=== PATIENT | male | born 1975 | race Caucasian/White ===

== ENCOUNTER 2020-02-09 12:49 | Outpatient (CLI) | payer OTHER ==
[2020-02-09 14:06] LABS: BASOPHILS # (AUTO) 0.04 x10^3/uL (0-0.1); BASOPHILS % (AUTO) 1 % (0-1); EOSINOPHILS # (AUTO) 0.09 x10^3/uL (0-0.4); EOSINOPHILS % (AUTO) 2 % (1-7); LYMPHOCYTES # (AUTO) 2.47 x10^3/uL (1-3.4); LYMPHOCYTES % (AUTO) 41 % (22-44); MD NO; MEAN CORPUSCULAR HEMOGLOBIN 31.7 pg (27.5-34.5); MEAN CORPUSCULAR HGB CONC 34.2 g/dL (33.2-36.2); MEAN CORPUSCULAR VOLUME 92.8 fL (81-97); MEAN PLATELET VOLUME 8.4 fL (7.4-10.4); MONOCYTES # (AUTO) 0.45 x10^3/uL (0.2-0.8); MONOCYTES % (AUTO) 8 % (2-9); NEUTROPHILS # (AUTO) 2.98 x10^3/uL (1.8-6.8); NEUTROPHILS % (AUTO) 50 % (42-75); PLATELET COUNT 198 x10^3/uL (130-400); RED BLOOD COUNT 4.53 x10^6/uL (4.38-5.82); RED CELL DISTRIBUTION WIDTH 13.8 % (9.4-14.8)
[2020-02-09 14:19] LABS: ANION GAP 7 mmol/L (5-15); CALCIUM 8.8 mg/dL (8.5-10.1); CHLORIDE 108 mmol/L (98-107); CREATININE 1.27 mg/dL (0.7-1.3)
[2020-02-09 14:30] LABS: MICROSCOPIC NOT IND
[2020-02-09 16:19] LABS: INTERNATIONAL NORMALIZED RATIO 1.01 (0.93-1.1); PROTHROMBIN TIME 10.7 Seconds (9.6-11.5)
[2020-02-09] MEDS ORDERED: QUET100T4 PO (16:37)
[2020-02-09] MEDS ORDERED: BUPR150T28 PO (16:37)
[2020-02-09] MEDS ORDERED: GABA300C PO (16:37)
[2020-02-09] MEDS ORDERED: CITA20TA6 PO (16:37)
[2020-02-09] MEDS ORDERED: OMEP20TA62 PO (16:37)
== END 2020-02-09 23:59 | disposition home or self-care (01) ==
LOC: STAR 12:49
PROVIDERS: ATTEND Neurological Surgery
DX: Z01.810 Encounter for preprocedural cardiovascular examination (principal); Z01.811 Encounter for preprocedural respiratory examination; Z01.812 Encounter for preprocedural laboratory examination; M48.061 Spinal stenosis, lumbar region without neurogenic claudication; M43.06 Spondylolysis, lumbar region; R79.1 Abnormal coagulation profile; R82.90 Unspecified abnormal findings in urine; R94.31 Abnormal electrocardiogram [ECG] [EKG]
CPT/HCPCS: 36415; 71046; 80048; 81003; 85025; 85610; 85730; 93005

== ENCOUNTER → 2020-02-12 | Outpatient (CLI) | payer OTHER ==
[~2020-02-12] MED LIST: BUPR150T28 PO; CITA20TA6 PO; GABA300C PO; OMEP20TA62 PO; QUET100T4 PO
== END | disposition home or self-care (01) ==
LOC: CFH 15:45
PROVIDERS: ATTEND Neurological Surgery
DX: M51.36 Other intervertebral disc degeneration, lumbar region (principal)
CPT/HCPCS: 72131

== ENCOUNTER 2020-02-16 05:24 | Inpatient (IN) | payer OTHER ==
[~2020-02-16] VITALS: Ht 177.8 cm; Wt 115.0 kg
[2020-02-16] MEDS ORDERED: LACTATED RINGERS 1,000 ML IV SCH (05:57)
[2020-02-16 05:59] VITALS: BP 129/82
[2020-02-16] MEDS ORDERED: CHLORHEXIDINE 15 ML UDC MM ONE (06:00)
[2020-02-16] MEDS ORDERED: BACITRACIN 50,000 UNIT ONE (06:21)
[2020-02-16] MEDS ORDERED: BUPIVACAINE/PF-EPI 0.5% 1:200K ONE (06:21)
[2020-02-16] MEDS ORDERED: VANCOMYCIN 1,000 MG ONE (06:21)
[2020-02-16] MEDS ORDERED: MIDAZOLAM 1 MG/ML, 2ML ONE (06:48)
[2020-02-16] MEDS ORDERED: CEFAZOLIN 1,000 MG ONE ×2 (06:49)
[2020-02-16] MEDS ORDERED: ROCURONIUM 10MG/ML,5ML ONE (06:49)
[2020-02-16] MEDS ORDERED: DEXAMETHASONE 4 MG/ML, 1ML ONE ×2 (06:49)
[2020-02-16] MEDS ORDERED: PROPOFOL 10 MG/ML, 20ML ONE (06:49)
[2020-02-16] MEDS ORDERED: ONDANSETRON 2MG/ML, 2ML ONE (06:49)
[2020-02-16] MEDS ORDERED: FENTANYL PF 250 MCG/5ML ONE (06:49)
[2020-02-16] MEDS ORDERED: MAGNESIUM SULFATE 1 GM/2 ML ONE (06:55)
[2020-02-16] MEDS ORDERED: KETAMINE 10 MG/ML, 20ML ONE (06:55)
[2020-02-16] MEDS ORDERED: ACETAMINOPHEN 500 MG TABLET PO ONE (07:00)
[2020-02-16] MEDS ORDERED: OXYcodone IR 5MG TABLET PO ONE (07:00)
[2020-02-16] MEDS ORDERED: GABAPENTIN 300 MG CAPSULE PO ONE (07:00)
[2020-02-16] MEDS ORDERED: METOCLOPRAMIDE 5 MG/ML, 2ML ONE (07:11)
[2020-02-16] MEDS ORDERED: LIDOCAINE PF 2%, 5ML ONE (07:11)
[2020-02-16] MEDS ORDERED: MEPERIDINE/PF 25MG/0.5ML IVPush PRN (07:30)
[2020-02-16] MEDS ORDERED: LORazepam 2 MG/ML, 1ML IVPush PRN (07:30)
[2020-02-16] MEDS ORDERED: OXYcodone 5 MG/5 ML ORAL.SOL UDC PO PRN (07:30)
[2020-02-16] MEDS ORDERED: DIPHENHYDRAMINE 50 MG/ML, 1ML IVPush PRN ×2 (07:30→10:30)
[2020-02-16] MEDS ORDERED: HALOPERIDOL 5 MG/ML IV PRN (07:30)
[2020-02-16] MEDS ORDERED: hydrALAzine 20 MG/ML, 1ML IV PRN (07:30)
[2020-02-16] MEDS ORDERED: ONDANSETRON 2MG/ML, 2ML IVPush PRN ×2 (07:30→10:30)
[2020-02-16] MEDS ORDERED: VANCOMYCIN 1,000 MG IM ONE (07:53)
[2020-02-16] MEDS ORDERED: NEOSTIGMINE 1 MG/ML, 10ML ONE (09:51)
[2020-02-16] MEDS ORDERED: GLYCOPYRROLATE 0.2MG/1ML, 5ML ONE (09:51)
[2020-02-16] MEDS ORDERED: FENTANYL PF 100 MCG/2ML ONE ×2 (10:20→10:55)
[2020-02-16] MEDS ORDERED: OXYcodone 5 MG/5 ML ORAL.SOL UDC ONE (10:21)
[2020-02-16] MEDS: FENTANYL PF 100 MCG/2ML IV PRN ×3 (10:25→10:56)
[2020-02-16] MEDS ORDERED: ACETAMINOPHEN 325 MG TABLET PO PRN (10:30)
[2020-02-16] MEDS ORDERED: ENOXAPARIN 40 MG/0.4 ML SQ SCH (10:30)
[2020-02-16] MEDS ORDERED: HYDROcodone/APAP 5/325 TABLET PO PRN (10:30)
[2020-02-16] MEDS ORDERED: PROMETHAZINE 25 MG/ML, 1ML IM PRN (10:30)
[2020-02-16] MEDS ORDERED: SENNA/DOCUSATE TABLET PO PRN (10:30)
[2020-02-16] MEDS ORDERED: METHOCARBAMOL 1,000 MG in DEXTROSE 5% 100 ML IV ONE (10:30)
[2020-02-16] MEDS ORDERED: MAGNESIUM HYDROXIDE 8%, 30ML UDC PO PRN (10:30)
[2020-02-16] MEDS ORDERED: PHARMACY MAY ADJ FOR RENAL FX MC PRN (10:30)
[2020-02-16] MEDS ORDERED: HYDROmorphone 1 MG/ML, 1ML INJ ONE ×2 (10:46→11:03)
[2020-02-16] MEDS: HYDROmorphone 1 MG/ML, 1ML INJ IVPush PRN ×8 (10:51→22:19)
[2020-02-16] MEDS: D5%-0.9% NACL+KCL 20MEQ 1,000 ML IV SCH ×2 (11:57→22:58)
[2020-02-16 12:30] VITALS: BP 130/84
[2020-02-16] MEDS: OXYcodone/APAP 5/325MG TABLET PO PRN ×3 (15:04→20:08)
[2020-02-16] MEDS: CEFAZOLIN PMX 1GM/50ML 50 ML IVPB SCH (15:04)
[2020-02-16 19:55] VITALS: BP 155/75
[2020-02-16] MEDS: METHOCARBAMOL 750 MG TABLET PO PRN (20:08)
[2020-02-16 23:48] VITALS: BP 111/71
[2020-02-17] MEDS: CEFAZOLIN PMX 1GM/50ML 50 ML IVPB SCH (00:03)
[2020-02-17] MEDS: OXYcodone/APAP 5/325MG TABLET PO PRN ×6 (00:04→21:26)
[2020-02-17] MEDS: HYDROmorphone 1 MG/ML, 1ML INJ IVPush PRN ×3 (02:16→23:52)
[2020-02-17 02:26] VITALS: BP 110/69
[2020-02-17] MEDS: METHOCARBAMOL 750 MG TABLET PO PRN (04:00)
[2020-02-17] MEDS: ENOXAPARIN 40 MG/0.4 ML SQ SCH (06:25)
[2020-02-17] MEDS: D5%-0.9% NACL+KCL 20MEQ 1,000 ML IV SCH ×2 (06:30→16:30)
[2020-02-17] MEDS: KETOROLAC 30 MG/1 ML IVPush PRN ×3 (07:10→20:16)
[2020-02-17 07:52] VITALS: BP 109/73
[2020-02-17] MEDS: CITALOPRAM 20 MG TABLET PO SCH (08:05)
[2020-02-17] MEDS: GABAPENTIN 300 MG CAPSULE PO SCH (08:05)
[2020-02-17] MEDS: TAMSULOSIN 0.4 MG CAP.ER.24H PO SCH (08:06)
[2020-02-17] MEDS: QUETIAPINE 100MG TABLET PO SCH (08:06)
[2020-02-17] MEDS: BUPROPION SR 150 MG TABLET PO SCH ×2 (08:06→20:17)
[2020-02-17] MEDS: OMEPRAZOLE 20 MG CAPSULE.DR PO SCH (08:06)
[2020-02-17] MEDS: METHOCARBAMOL 1,000 MG in DEXTROSE 5% 100 ML IV SCH ×3 (08:47→21:24)
[2020-02-17] MEDS ORDERED: METHOCARBAMOL 1000MG/10 ML IV SCH (09:00)
[2020-02-17 12:54] VITALS: BP 104/59
[2020-02-17 18:37] VITALS: BP 89/55
[2020-02-18 00:41] VITALS: BP 105/59
[2020-02-18] MEDS: OXYcodone/APAP 5/325MG TABLET PO PRN ×4 (01:38→14:24)
[2020-02-18] MEDS: KETOROLAC 30 MG/1 ML IVPush PRN ×3 (02:22→14:24)
[2020-02-18] MEDS: D5%-0.9% NACL+KCL 20MEQ 1,000 ML IV SCH ×2 (02:30→12:30)
[2020-02-18] MEDS: ENOXAPARIN 40 MG/0.4 ML SQ SCH (05:40)
[2020-02-18] MEDS ORDERED: METHOCARBAMOL 750 MG TABLET PO PRN (06:30)
[2020-02-18 07:03] VITALS: BP 110/69
[2020-02-18] MEDS: QUETIAPINE 100MG TABLET PO SCH (08:40)
[2020-02-18] MEDS: TAMSULOSIN 0.4 MG CAP.ER.24H PO SCH (08:40)
[2020-02-18] MEDS: GABAPENTIN 300 MG CAPSULE PO SCH (08:40)
[2020-02-18] MEDS: METHOCARBAMOL 1,000 MG in DEXTROSE 5% 100 ML IV SCH (08:40)
[2020-02-18] MEDS: OMEPRAZOLE 20 MG CAPSULE.DR PO SCH (08:40)
[2020-02-18] MEDS: BUPROPION SR 150 MG TABLET PO SCH (08:40)
[2020-02-18] MEDS: CITALOPRAM 20 MG TABLET PO SCH (08:40)
[2020-02-18 13:55] VITALS: BP 120/73
[2020-02-18] MEDS ORDERED: OXYC-307 PO (15:40)
[2020-02-18] MEDS ORDERED: METH750T87 PO (15:41)
[2020-02-18] MEDS ORDERED: TAMS-11 PO (15:41)
== END 2020-02-18 16:15 | disposition home or self-care (01) | DRG 455 ==
LOC: ORIP 05:24 → 4NE 11:34 → DCLOUNGE 02-18 15:55
PROVIDERS: ADMIT Neurological Surgery; ATTEND Neurological Surgery
PROC: 0SG00K1 Fusion of Lumbar Vertebral Joint with Nonautologous Tissue Substitute, Posterior Approach, Posterior Column, Open Approach (ICD-10-PCS; 2020-02-16)
PROC: 01NB0ZZ Release Lumbar Nerve, Open Approach (ICD-10-PCS; 2020-02-16)
PROC: 0SG00AJ Fusion of Lumbar Vertebral Joint with Interbody Fusion Device, Posterior Approach, Anterior Column, Open Approach (ICD-10-PCS; 2020-02-16)
PROC: 00J Central Nervous System and Cranial Nerves, Inspection (ICD-10-PCS; 2020-02-16)
PROC: 5A09357 Assistance with Respiratory Ventilation, Less than 24 Consecutive Hours, Continuous Positive Airway Pressure (ICD-10-PCS; 2020-02-16)
PROC: 0SG00AJ Fusion of Lumbar Vertebral Joint with Interbody Fusion Device, Posterior Approach, Anterior Column, Open Approach (ICD-10-PCS; principal; 2020-02-16 07:00)
PROC: 5A09357 Assistance with Respiratory Ventilation, Less than 24 Consecutive Hours, Continuous Positive Airway Pressure (ICD-10-PCS; 2020-02-17)
DX: M48.062 Spinal stenosis, lumbar region with neurogenic claudication (principal); M47.26 Other spondylosis with radiculopathy, lumbar region; M51.16 Intervertebral disc disorders with radiculopathy, lumbar region; M79.7 Fibromyalgia; R33.9 Retention of urine, unspecified
CPT/HCPCS: 72100; C1713; C1776; G0378; J0690; J1100; J1170; J1650; J1885; J2250; J2405; J2704; J2710; J3010; J3370; J3475; C1763; J2765; J2800; J3480; J7120; U0001-CS